=== PATIENT | male | born 1970 | race Caucasian/White ===

== ENCOUNTER → 2016-09-18 | Outpatient (CLI) | payer OTHER ==
[~2016-09-18] MED LIST: ASPI81TA28 PO; CYCL5TAB PO; HYDR-5688 PO; LISI10TA PO; PANT40TA PO
--- NOTE | 2016-09-18 10:17 | DIAGNOSTIC IMAGING REPORT ---
TWO VIEW CHEST CLINICAL HISTORY: Preoperative examination. FINDINGS: PA and lateral chest radiographs are compared to study dated 05/10/2013. The cardiomediastinal silhouette is unremarkable. The lungs and pleural spaces are clear. There is no pneumothorax. The bony thorax appears intact. IMPRESSION: No active disease in the chest. Electronically signed by: Nhan Luna M.D. 09/18/2016 10:15 AM Dictated Date/Time: 09/18/2016 10:15 AM
[2016-09-18 10:18] LABS: BASO % 0.2 %; BASO ABS # 0.02 K/uL (0-0.2); COMPLETE YES; EOS % 1.8 %; HEMATOCRIT 45.7 % (42-52); IG% 0.2 %; LYMPH % 23.1 %; LYMPH ABS # 2.46 K/uL (1.2-3.4); MEAN CELL VOLUME 89.4 fL (80-100); MEAN CORPUSCULAR HEMOGLOBIN 30.3 pg (25-34); MEAN CORPUSCULAR HGB CONC 33.9 g/dl (32-36); MEAN PLATELET VOLUME 11.4 fL (7.4-10.4); MONO % 5.9 %; NEUT % 68.8 %; PLATELET COUNT 261 K/uL (130-400); RED BLOOD COUNT 5.11 M/uL (4.7-6.1); WHITE BLOOD COUNT 10.67 K/uL (4.8-10.8)
== END | disposition home or self-care (01) ==
LOC: C.LAB 09:39
PROVIDERS: ATTEND Orthopaedic Surgery Orthopaedic Surgery of the Spine
DX: Z01.812 Encounter for preprocedural laboratory examination (principal); Z01.811 Encounter for preprocedural respiratory examination

== ENCOUNTER 2016-09-27 06:26 | Observation (INO) | payer OTHER ==
[2016-09-17 09:19] VITALS: BMI 27.0; BMI 29.0
--- NOTE | 2016-09-26 10:14 | HISTORY & PHYSICAL EXAMINATION ---
DATE OF ADMISSION: 09/27/2016 PREOPERATIVE HISTORY AND PHYSICAL He is being preoped for an anterior cervical diskectomy and fusion for cord compression at C6-C7 of the cervical spine. HISTORY OF PRESENT ILLNESS: Alejandro is pleasant. He is 45, long duration of upper extremity difficulty, shoulders, arms. He has been seen and worked up by my partner Dr. Clemens in the past with some shoulder pathology, injections never quite took care of the problem. He had radiating arm pain, continues to have radiating arm pain. He also had bilateral carpal tunnel release which did minimal help. He has had all sorts of conservative care, he is scheduled for surgery. He has a very large disk herniation C6-C7 cervical spine. MEDICATIONS: Lisinopril, Prilosec, Flexeril, hydrocodone, low dose aspirin. PAST MEDICAL HISTORY: Positive for hypertension. No COPD. Positive sleep apnea. No anemia, kidney and liver negative, acid reflux positive. No carcinoma. SOCIAL HISTORY: One pack a day cigarette smoker. Nonalcohol user. PAST SURGICAL HISTORY: Include carpal tunnel surgery, bilateral arm surgery. ALLERGIES: Negative. REVIEW OF SYSTEMS: Denies any blurred vision, double vision, tinnitus, vertigo or mentation issues. Denies any chest pain, palpitations, asthma, wheezing, shortness of breath negative. Does have some reflux, GI issues, but no nausea, vomiting, no loss of bowel or bladder function, no urinary complaints. PHYSICAL EXAMINATION: VITAL SIGNS: Blood pressure 130/80, pulse 80, respirations 16, temperature 97.4. HEENT: Pupils react to light and accommodation. Ear, nose and throat clear. NECK: His cervical spine demonstrates some pain with forward flexion and extension of his upper extremities. He has some hyperreflexia of the brachioradialis and biceps region bilaterally also triceps. NEUROLOGIC: He has a mildly positive Spurling maneuver with rotation and side bending and he has no gait abnormality. IMAGING DATA: His images demonstrate large disk herniation, C6-C7 cervical spine. IMPRESSION: Cervical spondylosis with a large disk herniation, C6-C7. DISPOSITION: Includes surgery for tomorrow, September 27, for anterior cervical diskectomy and fusion with left iliac crest bone at [facility].
[2016-09-27] VITALS (14 sets, daily range): BP systolic 122–143; BP diastolic 65–83; PULSE 71–89; TEMP 36.5–36.8; O2SAT 93–96; Ht 177.8 cm; Wt 90.9 kg
[~2016-09-27] VITALS: Ht 177.8 cm; Wt 90.9 kg
[~2016-09-27 06:26] MED LIST changes: +CEFAZOLIN 2000 MG/60 ML D5W 60 ML IV SCH; +LACTATED RINGER'S 1000ML 1,000 ML IV SCH; +NSS 1000ML IV SCH
[2016-09-27] MEDS ORDERED: THROMBIN FOR SOLN 20000 UNIT KIT ONE (07:46)
[2016-09-27] MEDS ORDERED: GELATIN SPONGE SZ 100 ONE (07:46)
[2016-09-27] MEDS ORDERED: BACITRACIN 50000 UNIT VIAL ONE (07:46)
[2016-09-27] MEDS ORDERED: BUPIVACAINE/EPINEPHRINE 0.5% MPF 1:200,000 30 ML VIAL ONE (07:46)
[2016-09-27] MEDS ORDERED: ONDANSETRON INJ 2 MG/ML 2 ML VIAL ONE (07:49)
[2016-09-27] MEDS ORDERED: GLYCOPYRROLATE INJ 0.2 MG/ML VIAL ONE (07:49)
[2016-09-27] MEDS ORDERED: NEOSTIGMINE METHYLSULFATE 5 MG/5 ML SYR ONE (07:49)
[2016-09-27] MEDS ORDERED: DEXAMETHASONE SOD INJ 4 MG/ML VIAL ONE (07:49)
[2016-09-27] MEDS ORDERED: ROCURONIUM BROMIDE 10 MG/ML 5 ML VIAL ONE (07:49)
[2016-09-27] MEDS ORDERED: PROPOFOL IV EMULSION 10 MG/ML 20 ML VIAL IV ONE (07:49)
[2016-09-27] MEDS ORDERED: LIDOCAINE HCL 2% 2 ML VIAL (20MG/ML) ONE (07:49)
[2016-09-27] MEDS ORDERED: MIDAZOLAM HCL 1 MG/ML 2ML VIAL ONE (07:50)
[2016-09-27] MEDS ORDERED: FENTANYL CITRATE INJ 50 MCG/1 ML 2 ML VIAL ONE ×2 (07:50→07:54)
--- NOTE | 2016-09-27 07:53 | History & Physical Bridge Note ---
H&P Re-Evaluation Bridge Note: I have examined the patient, reviewed the History & Physical and in the interval since the performance of the History & Physical I have noted the following changes of clinical significance: No changes noted
[2016-09-27 07:56] LABS: BUN/CREATININE RATIO 15.7 (10-20); CREATININE 1.1 mg/dl (0.60-1.40); POTASSIUM 3.7 mmol/L (3.5-5.1)
[2016-09-27] MEDS ORDERED: HYDROmorphone INJ 2 MG/ML SYR/VIAL ONE (08:28)
[2016-09-27] MEDS ORDERED: LARYING-O-JET KIT (LTA) ONE ×2 (08:35)
[2016-09-27] MEDS ORDERED: ONDANSETRON INJ 2 MG/ML 2 ML VIAL IV PRN ×2 (09:15→10:15)
[2016-09-27] MEDS ORDERED: ATROPINE SULFATE 0.1 MG/ML 5ML SYR IV PRN (09:15)
[2016-09-27] MEDS ORDERED: MoRPHine SULFATE 10 MG/ML CARP/VIAL IV PRN (09:15)
[2016-09-27] MEDS ORDERED: EpHEDrine SULFATE INJ 50 MG/ML AMP IV PRN (09:15)
--- NOTE | 2016-09-27 09:54 | DIAGNOSTIC IMAGING REPORT ---
INTRAOPERATIVE FLUOROSCOPIC IMAGES OF THE CERVICAL SPINE CLINICAL HISTORY: ACDF C6-7 COMPARISON STUDY: MRI of the cervical spine August 07, 2016. Fluoroscopy time: 6.1 seconds. FINDINGS: Single lateral intraoperative fluoroscopic image demonstrates an anterior discectomy and fusion which is partially obscured due to overlying soft tissues. This suggests a C6-C7 anterior discectomy and fusion. IMPRESSION: Intraoperative fluoroscopic image demonstrating a C6-C7 anterior discectomy and fusion. Electronically signed by: Gallo Tijerina M.D. 09/27/2016 9:53 AM Dictated Date/Time: 09/27/2016 9:52 AM
--- NOTE | 2016-09-27 10:09 | [facility] Post Operative Brief Note ---
Immediate Operative Summary Operative Date Sep 27, 2016. Pre-Operative Diagnosis Cervical spondylosis with a large disk herniation, C6-C7 Post-Operative Diagnosis Cervical spondylosis with a large disk herniation, C6-C7 Procedure(s) Performed C6-C7 Anterior Cervical Discectomy and Fusion with Left Iliac Crest Bone Graft Surgeon Dr. Rosas Ulloa Compressed Gases Tester Surgeon(s) Ezequiel Brice PA-C Estimated Blood Loss 50ml Findings cord compression Specimens None per surgeon Complication(s) None Disposition Recovery Room / PACU
[2016-09-27] MEDS ORDERED: ACETAMINOPHEN IV 100 ML IV PRN (10:15)
[2016-09-27] MEDS ORDERED: MAGNESIUM HYDROXIDE SUSP 30 ML UDC PO PRN (10:15)
[2016-09-27] MEDS ORDERED: RACEPINEPHRINE 2.25% NEBU SOLN 0.5 ML VIAL INH PRN (10:15)
[2016-09-27] MEDS ORDERED: CYCLOBENZAPRINE HCL 10 MG TAB PO PRN (10:15)
[2016-09-27] MEDS ORDERED: NALOXONE HCL 0.4 MG/1 ML VIAL/CARP IV PRN (10:15)
[2016-09-27] MEDS ORDERED: DEXAMETHASONE INJ 8 MG in SYRINGE 0 ML IV PRN (10:15)
[2016-09-27] MEDS ORDERED: LORAZEPAM INJ 0.5 MG in SYRINGE 0.75 ML IV PRN (10:15)
[2016-09-27] MEDS: FENTANYL CITRATE INJ 50 MCG/1 ML 2 ML VIAL IV PRN ×4 (10:28→10:43)
[2016-09-27] MEDS: SODIUM CHLORIDE 0.9% 1000ML 1,000 ML IV SCH ×2 (12:04→22:32)
[2016-09-27] MEDS ORDERED: IV FLUIDS COMPLETED PRN (12:15)
[2016-09-27] MEDS: HYDROmorphone INJ 1 MG/ML SYR IV PRN ×2 (13:53→20:46)
--- NOTE | 2016-09-27 14:19 | Anesthesiology Progress Note ---
Anesthesia Post Op Note Date & Time Sep 27, 2016 at 14:18 Vital Signs Pain Intensity: 5.0 Vital Signs Past 12 Hours Date Time Temp Pulse Resp B/P (MAP) Pulse Ox O2 Delivery O2 Flow Rate FiO2 09/27/16 13:40 36.7 77 14 125/79 94 Nasal Cannula 3.0 09/27/16 12:26 36.8 86 14 135/79 96 Nasal Cannula 3.0 09/27/16 11:59 82 16 95 Nasal Cannula 3.0 09/27/16 11:57 36.7 87 18 129/72 94 Nasal Cannula 3.0 09/27/16 11:30 93 Nasal Cannula 3.0 09/27/16 11:30 36.7 16 143/82 93 Nasal Cannula 3.0 09/27/16 11:30 93 Nasal Cannula 3.0 09/27/16 11:10 36.2 91 16 130/76 95 Nasal Cannula 4 09/27/16 11:00 91 16 134/77 95 Nasal Cannula 4 09/27/16 10:50 36.2 87 16 141/83 94 Nasal Cannula 4 09/27/16 10:40 90 16 146/81 93 Nasal Cannula 4 09/27/16 10:30 86 16 142/74 95 Mask 10 09/27/16 10:20 90 16 150/71 95 Mask 10 09/27/16 10:10 36.1 96 16 135/70 94 Mask 10 09/27/16 07:03 36.7 88 16 137/76 (96) 94 Room Air Notes Mental Status: alert / awake / arousable, participated in evaluation Pt Amnestic to Procedure: Yes Nausea / Vomiting: adequately controlled Pain: adequately controlled Airway Patency, RR, SpO2: stable & adequate BP & HR: stable & adequate Hydration State: stable & adequate Anesthetic Complications: no major complications apparent
--- NOTE | 2016-09-27 14:21 | OPERATIVE REPORT ---
DATE OF OPERATION: 09/27/2016 PREOPERATIVE DIAGNOSIS: Cord compression C6-7 cervical. POSTOPERATIVE DIAGNOSIS: Same. PROCEDURE: Include an anterior cervical discectomy and fusion C6-7 cervical and left iliac crest bone graft. SURGEON: Dr. Ulloa. RESTAURANT ASSOCIATE: Ezequiel Brice PA-C. COMPLICATIONS: Zero. BLOOD LOSS: Less than 50 mL. DESCRIPTION OF PROCEDURE: The patient was taken to the operating room and kept in a supine position. Five pounds of traction placed in the cervical area. He was scrubbed with Betadine, prepped with ChloraPrep. We commenced with surgery. He was draped sterilely. Formal timeout taken. We made a transverse skin incision over C6-7 of the cervical spine, dissecting the soft tissue, we protected all neurovascular structures that were visualized. We came in on the C6-7 disk interspace. We did formal discectomy, first with a 15-scalpel blade, curettes, pituitaries and evacuated this area. We actually got behind the PLL and I was able to take out a large piece of disc herniation, left and right. I was pleased with the decompression. I felt we did not injure the patient and appropriately got rid of the offending compression. We then went to the left iliac crest, made a skin incision, fascia incision. I was able to harvest a piece of autograft placed into the discectomy site. It measured approximately 50 mm in length, 12 mm across and the 8 mm in height and tapered to about 7. This was paced in the discectomy area, tapped into place. An anterior plate placed over the construct to the [employer] about 16 mm, the screws length were 14. We irrigated and closed over a [place] drain with a 4-0 Monocryl suture. Sterile dressings was applied. The crest was closed with 2-0 Vicryl suture, 3-0 nylon and sterile dressings as well. Cervical collar applied. The patient extubated to PACU, stable. No apparent complications. I attest to the content of the Intraoperative Record and any orders documented therein. Any exceptions are noted below. MTDD
[2016-09-27] MEDS: CEFAZOLIN IV 1,000 MG in DEXTROSE 5% 50ML 50 ML IV SCH (16:18)
[2016-09-27] MEDS: DEXAMETHASONE INJ 6 MG in SYRINGE 0 ML IV SCH (16:19)
[2016-09-27] MEDS: HYDROCODONE/ACETAMOPHEN 5/325MG TAB PO PRN ×2 (17:26→22:32)
[2016-09-27] MEDS: DOCUSATE SODIUM 100 MG CAP PO SCH (20:46)
[2016-09-27] MEDS ORDERED: ASPIRIN 81 MG ECTAB PO SCH (21:00)
[2016-09-28] VITALS (9 sets, daily range): BP systolic 113–122; BP diastolic 64–69; PULSE 65–73; TEMP 36.3–36.7; O2SAT 90–94
[2016-09-28] MEDS: DEXAMETHASONE INJ 6 MG in SYRINGE 0 ML IV SCH ×2 (00:28→08:29)
[2016-09-28] MEDS: CEFAZOLIN IV 1,000 MG in DEXTROSE 5% 50ML 50 ML IV SCH ×2 (00:28→08:29)
[2016-09-28] MEDS: HYDROCODONE/ACETAMOPHEN 5/325MG TAB PO PRN ×2 (04:38→08:34)
--- NOTE | 2016-09-28 07:59 | Discharge Instructions ---
Discharge Instructions Date of Service Sep 28, 2016. Admission Reason for Admission: Cervical Disc Herniation C6-C7 Discharge Discharge Diagnosis / Problem: cord compression Discharge Goals Goal(s): Improve function Activity Recommendations Activity Limitations: as noted below Lifting Limitations: until after follow-up appointment Exercise/Sports Limitations: until after follow-up appointment May Resume Sexual Activity: after follow-up appointment Shower/Bathe: keep incision dry . Instructions / Follow-Up Instructions / Follow-Up MEDICATIONS: Please take your prescriptions as instructed at your pre-op appointment. SPECIAL CARE: The following information is intended to answer some of the common questions and concerns regarding your surgery. Each patient is an individual and receives individual counselling throughout the course of treatment, from diagnosis to surgery all the way through recovery. What follows is not an exhaustive list, but should be a useful guide to some of the common questions and concerns patients have regarding their surgeries. These are not provided to keep you from calling us; rather, they give you something accurate and concrete to reference as you recover from your procedure. If you need us, we are available to you. As always, if you are not sure about something, call us at [phone]. MEDICAL EMERGENCIES: For these conditions, call 911 or go to your local hospital-based Emergency Department - not [facility] or equivalent. * Paralysis * Severe chest pain or difficulty breathing * Swelling or redness of either leg Spine procedures can be rather complex and though complications are rare, they do occur. In such cases, effective advice regarding emergency situations cannot always be addressed over the telephone. You may be referred to the emergency department for more effective management of your problem. Activity Limitations: It is important to give your body time to heal, so please limit your activities : * In general, don't do anything that moves your spine too much. You should avoid contact sports, twisting or heavy lifting while you recover. * 5-10 pounds is all you should attempt to lift. * You should not plan on driving for approximately 3 weeks and you should avoid traveling more than 30-45 minutes at a time. Longer trips should be broken down with walking breaks spaced appropriately. * Physical therapy is not usually required. * Walking and good posture practices will help you recover and regain your function. * Avoid straining or sudden changes in position. * In general, the goal is to take it easy and recover. Don't cause any new problems. Just relax. Showers: * Do not take a bath, use a Jacuzzi or hot tub or otherwise submerge your incision. * It is usually safe to take a shower 4-5 days after your surgery. * Your incision does not require any special creams or ointments. * Simply clean it with soap and water, dry and re-dress with a clean bandage afterwards. Incision: * Keep incision clean, dry and protected until your first follow-up appointment. * Some amount of drainage and redness is normal. Any drainage should be fairly clear and not have a foul odor. * If you feel anything is wrong or you have excessive drainage, please call us. * Your stitches and emilia will be removed 10-14 days after your surgery. At the time of your first post-op visit. * Neck surgeries are typically closed with a suture underneath the skin. The steri-strips over the incision should be maintained until we see you in the office. Bracing: * You may be provided with a back or neck brace to encourage good posture and prevent injury. It will remind you not to do too much as you heal and will alert others to the fact that you have had a surgery. * Back braces may be removed for showers and when you are resting at home. They must be worn when you are walking around for any period of time or for travel. * For neck surgery, you will likely be provided with two cervical collars. The soft collar ([place] or foam rubber) is worn most commonly throughout the day and while sleeping. The plastic collar (provided at the hospital) is for showering/bathing. * Except while eating, collars should remain in place. More specifically, bracing is provided for a purpose and should be worn. * Please obtain your brace or collars prior to your operation and bring them to the hospital with you on the day of surgery. * You should also bring your collars to your post-op appointment with Dr. Ulloa. You should always take good care of your body and practice healthy habits, especially following surgery. You should: * Follow your doctor's treatment plan * Sit and stand properly with good posture (ears over shoulders, shoulders over hips) Don't slouch * Learn to lift correctly * Exercise regularly (low-impact aerobic exercise is especially good, but check with your doctor first) * Generally, be up and walking for 5-10 minutes at a time at least 3-4 times per day from the day you get home * Increasing walking to tolerance until you can walk for 20-30 minutes at a time * Attain and maintain a healthy body weight * Eat healthy foods ( a well-balanced, low-fat diet rich in fruits and vegetables) and get enough calcium * Avoid excessive use of alcohol When to call our office - If you notice any of the following: * Increased pain not relieve by pain medicine * Fevers greater then 100 degrees F, chills or flu symptoms * Increased redness around incision * Drainage from the incision that is not clear * Any foul smelling drainage * Swelling or fluid collection beneath the skin Miscellaneous: * In the hospital, you may be given a walker or cane for support while walking. These are temporary needs and are intended to prevent injuries due to falls. You may discontinue them when you feel strong and steady enough on your feet. * Sleep in a comfortable position. We find that many patients find a lounge chair or recliner with several pillows to be beneficial in the early post-operative period. * The support stockings should be used for 7-10 days and may be discontinued when you are back to walking more and conducting usual household activities. No problem is insignificant. We are here to help you and get you well. Contact us at [phone]. Definitions: Foraminotomy: If part of the disc or a bone spur (osteophyte) is pressing on a nerve as it leaves the vertebra (through an exit called the foramen), a foraminotomy may be done. Otomy means "to make an opening." A foraminotomy is making the opening of the foramen larger, so the nerve can exit without being compressed. Laminotomy: Similar to the foraminotomy, a laminotomy makes a larger opening, this time in your bony plate protecting your spinal canal and spinal cord (the lamina). The lamina may be pressing on your nerve, so the surgeon may make more room for the nerves using a laminotomy. Laminectomy: Sometimes, a laminotomy is not sufficient. The surgeon may need to remove all or part of the lamina. This procedure is called a laminectomy. This can often be done at many levels without any harmful effects. Current Hospital Diet Patient's current hospital diet: Full Liquid Diet; Advance as tolerated Discharge Diet Recommended Diet: Regular Diet Procedures Procedures Performed: C6-C7 Anterior Cervical Discectomy and Fusion with Left Iliac Crest Bone Graft Pending Studies Studies pending at discharge: no Medical Emergencies . Who to Call and When: Medical Emergencies: If at any time you feel your situation is an emergency, please call 911 immediately. . Non-Emergent Contact Non-Emergency issues call your: Surgeon Call Non-Emergent contact if: your pain is concerning you, you have any medication questions . "Provider Documentation" section prepared by Rosas Ulloa. . VTE Core Measure Inpt VTE Proph given/why not?: Treatment not indicated
--- NOTE | 2016-09-28 08:02 | Anesthesiology Progress Note ---
Anesthesia Post Op Note Date & Time Sep 28, 2016 at 08:01 Vital Signs Pain Intensity: 3.0 Vital Signs Past 12 Hours Date Time Temp Pulse Resp B/P (MAP) Pulse Ox O2 Delivery O2 Flow Rate FiO2 09/28/16 06:30 36.5 67 16 121/68 92 Room Air 09/28/16 04:30 36.5 65 16 113/66 94 Nasal Cannula 2.0 Humidified Oxygen 09/28/16 03:24 68 16 94 Nasal Cannula 2.0 09/28/16 02:30 36.6 67 16 122/69 94 Nasal Cannula 2.0 Humidified Oxygen 09/28/16 00:30 36.3 73 18 116/64 94 Nasal Cannula 2.0 Humidified Oxygen 09/27/16 23:09 76 16 94 Nasal Cannula 2.0 09/27/16 22:30 36.6 71 18 126/72 95 Nasal Cannula 2.0 Humidified Oxygen 09/27/16 20:30 Nasal Cannula 2.0 Humidified Oxygen 09/27/16 20:30 36.6 72 18 139/67 95 Nasal Cannula 2.0 Humidified Oxygen Notes Mental Status: alert / awake / arousable, participated in evaluation Pt Amnestic to Procedure: Yes Nausea / Vomiting: adequately controlled Pain: adequately controlled Airway Patency, RR, SpO2: stable & adequate BP & HR: stable & adequate Hydration State: stable & adequate Anesthetic Complications: no major complications apparent
--- NOTE | 2016-09-28 08:09 | DISCHARGE SUMMARY ---
DATE OF DISCHARGE: 09/28/2016. SUBJECTIVE: Minimal complaints of pain. Alert, oriented, no chest pain, shortness of breath, no confusion. Neurologically improved. ASSESSMENT: Status post anterior cervical discectomy and fusion C6-C7 cervical spine with improvement in the short run. DISPOSITION: Instructions, precautions, education given to the patient. Will discharge him home later today. He has a follow-up appointment. He has prescriptions at home for pain.
[2016-09-28] MEDS: DOCUSATE SODIUM 100 MG CAP PO SCH (08:29)
[2016-09-28] MEDS ORDERED: PANTOprazole SOD 40 MG TAB PO SCH (09:00)
[2016-09-28] MEDS ORDERED: LISINOPRIL 10 MG TAB PO SCH (09:00)
[2016-09-29] MEDS ORDERED: BISACODYL 10 MG SUPP PR PRN (06:00)
[2016-09-29] MEDS ORDERED: BISACODYL 5 MG TABEC PO PRN (06:00)
== END 2016-09-28 11:10 | disposition home or self-care (01) ==
LOC: C.ACU 06:26 → C.3E 10:10 → ENRESERV 10:57
PROVIDERS: ADMIT Orthopaedic Surgery Orthopaedic Surgery of the Spine; ATTEND Orthopaedic Surgery Orthopaedic Surgery of the Spine
DX: M47.812 Spondylosis without myelopathy or radiculopathy, cervical region (principal); M50.223 Other cervical disc displacement at C6-C7 level; I10 Essential (primary) hypertension; F17.210 Nicotine dependence, cigarettes, uncomplicated